=== PATIENT | male | born 2000 | race Caucasian/White ===

== ENCOUNTER 2025-03-09 13:04 | Emergency (ER) | payer OTHER, SELFPAY ==
--- NOTE | ~2025-03-09 | XR_ITS ---
XR elbow RT min 3V 03/09/2025 14:07 INDICATION: Dog bites. PROCEDURE: 4 views right elbow COMPARISON: No prior studies for comparison. FINDINGS: Fracture, dislocation or subluxation is not identified. No joint effusion. The soft tissues appear within normal limits. No foreign bodies are identified. IMPRESSION: 1: NO ACUTE BONE OR JOINT ABNORMALITY IDENTIFIED. Reviewed, dictated and finalized at location A.
[2025-03-09 13:09] VITALS: BP 142/98; PULSE 100; RESP 17; TEMP 36.4; O2SAT 98
[2025-03-09] MEDS: KETOROLAC 10 MG TABLET PO (14:15)
[2025-03-09] MEDS: AMOXICILLIN/CLAVULANATE K 875-125 MG TAB 1 TABLET PO (14:15)
--- OUTSIDE RECORDS SUMMARY | 2025-03-09 14:21 | XMS_ITS | Referral Summary ---
Author Organization [facility] Address [address] [place] [id number] Care Team Providers Care Outreach Consultant Name Role Phone Rex Mora MD Primary Care Provid er Allergies No known active allergies Medications No known medications Active Problems Problem Noted Date Diagnosed Date Volar plate injury of finger 09/07/2015 Immunizations Immunization Administration Dates Next Due Adenovirus 11/11/2018 Anthrax 05/09/2021,04/27/2020,03/10/2020 DTaP 10/11/2004, 1,02/19/2000,12/20,1999 H1N1 Nasal 09/07/2009 Hep A / Hep B 07/30/2019,12/21/2018,11/11/2018 Hep A, Ped Unspecified 06/01/2005 Hep A, Pediatric 07/03/2004 Hep B, Adolescent or Pediatric 4,08/29/2000,05/22/2000,02/18 Hib (HbOC) 11/14/2000, 0,1999,10/22 IPV 12/14/2018, 4,08/29/2000,12/20,1999 Influenza LAIV (Nasal) 09/23/2007 Influenza, Quadrivalent, Corry l Culture-based MDCK, Antibiotic Free, Intramuscular 08/17/2019 Influenza, Quadrivalent, Spl it, Preservative Free, Intramuscular 08/27/2022,08/30/2021,08/30/2020,11/11,11/01/2015 Influenza, Split 11/11/2006 Influenza, Trivalent, Cell Culture-based MDCK, Preservative Free, Antibiotic Free, Intramuscular 09/06/2017 Influenza, Trivalent, IM (MDV) 09/21/2014 Influenza, Unspecified 10/09/2023(Deferr ed: Patient Refused),08/26/2018,10/02/2016 Influenza, Whole 09/19/2003 [place] Encephalitis IM 05/09/2021 MMR 07/03/2004,11/14/2000 Meningococcal MCV4P (Menactra) 11/11/2018,2016 PPD TEST 11/11/2018 Pneumococcal Conjugate 7-Valent 11/14/2000,08/29 Pneumococcal Polysaccharide PPV23 11/11/2018 Tdap 11/11/2018 Typhoid Inactivated 03/10/2020,07/30/2019 Varicella 08/29/2000 Social History Tobacco Use Types Packs/Day Years Used Date Smoking Tobacco: Former Cigarettes AUDIT-C Answer Date Recorded Q1: How often do you have a drink containing alc ohol? Monthly or less 08/28/2024 Q2: How many drinks containi ng alcohol do you have on a typical day when you are drinking? 1 or 2 08/28/2024 Q3: How often do you have si x or more drinks on one occasion? 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 Gender Identity Not on file Sexual Orientation Not on file Last Filed Vital Signs Vital Sign Reading Time Taken Comments Blood Pressure 120/72 08/28/2024 9:04 AM CDT Pulse 70 08/28/2024 9:04 AM CDT Temperature 36.3 C (97.4 F) 08/28/2024 9:04 AM CDT Respiratory Rate 16 05/10/2024 2:16 PM CDT Oxygen Saturation 98% 08/28/2024 9:04 AM CDT Inhaled Oxygen Concentration - - Weight 71.2 kg (157 lb) 08/28/2024 9:04 AM CDT Height 170.2 cm (5' 7 ) 08/28/2024 9:04 AM CDT Body Mass Index 24.59 08/28/2024 9:04 AM CDT Plan of Treatment Not on file Insurance [employer] OPEN ACCESS Care Teams Outreach Consultant Relationship Specialty Start Date End Date Rex Mora MD [address] [place] [address] PCP - General Family Medicine 04/26/24
--- OUTSIDE RECORDS SUMMARY | 2025-03-09 14:21 | XMS_ITS | Clinical Summary ---
Author Organization [facility] Address [address] [place] [phone] Care Team Providers Care Asbestos Shingle Roofer Name Role Phone Rex Mora MD Primary [...] 10/09/2023(Deferr ed: Patient Refused),08/26/2018,10/02/2016 Influenza, Whole 09/19/2003 Yi Encephalitis IM 05/09/2021 MMR 07/03/2004,11/14/2000 Meningococcal MCV4P (Menactra) 11/11/2018,2016 PPD TEST 11/11/2018 Pneumococcal Conjugate 7-Valent 11/14/2000,08/29 Pneumococcal Polysaccharide PPV23 11/11/2018 Tdap 11/11/2018 Typhoid Inactivated 03/10/2020,07/30/2019 Varicella 08/29/2000 Medical History Medical History Date Comments Back pain Family History Medical History Relation Name Comments Hyperlipidemia Father Other Maternal Grandfather Hypertension Maternal Grandmother Breast cancer Mother Thyroid disease Mother Hypertension Paternal Grandmother Relation Name Status Comments Father Maternal Grandfather Maternal Grandmother Mother Paternal Grandmother Social History Tobacco Use Types Packs/Day Years [...] on file 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 [employer] Gender Identity Not on file Sexual Orientation Not on file Obstetrics History Last Filed Vital Signs Vital Sign Reading [...] 08/28/2024 9:04 AM CDT Plan of Treatment Health Maintenance Due Date Last Done Comments Hepatitis C Screening 1999 Varicella Vaccines (2 of 2 - 2-dose childhood series) 10/21/2007 08/29/2000 HPV Vaccines (1 - Male 3-dos e series) 2014 Covid-19 Vaccine (3 - 2023-2 5 season) 2024 12/25/2020, 12/01/2020 Influenza Vaccine (#1) 2024 , 08/30/2021, 08/30/2020, Additional history exists Depression Screening 05/10/2025 05/10/2024, 05/10/20 24 Regular Well Visit/Exam 18-64 05/10/2025 05/10/2024 DTaP/Tdap/Td Vaccine (7 - Td or Tdap) 11/11/2028 11/11/2018, 10/11/2004, 11/14/2000, Additional history exists Pneumococcal vaccine <65 Completed 019, 11/14/2000, 08/29/2000 Hepatitis B Screening Completed 07/30/2019 , 12/21/2018, 11/11/2018, Additional history exists Insurance [employer] OPEN ACCESS Care Teams Asbestos Shingle Roofer Relationship Specialty Start Date End Date Rex Mora MD [address] [place] [address] PCP - General Family Medicine 04/26/24
--- NOTE | 2025-03-09 14:27 | ED.ANIMALBIT ---
HPI - Animal Bite General Chief Complaint: Animal Bite Stated Complaint: Dog bite Time Seen by Provider: 03/09/25 13:43 History of Present Illness HPI narrative: 24-year-old male presenting to the emergency department after a dog bite to his right upper extremity just prior to arrival. 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 There were several bite pinedo to his right upper extremity. Patient presents to the emergency department. No active bleeding noted. His tetanus is updated. No history of antibiotic allergies. He was otherwise in his normal state of health. States that he tried to get the dog away and got several bites. The animal is domesticated and fully vaccinated for rabies with no other concerns at this time. Patient presently is not worried about rabies. Related Data Allergies Allergy/AdvReac Type Severity Reaction Status Date / Time No Known Allergies Allergy Verified 03/09/25 13:55 Review of Systems Review of Systems: As reviewed above in HPI Exam Narrative: GENERAL: [Well-appearing, well-nourished, and in no acute distress.] HEAD: [Normocephalic, atraumatic.] EYES: [PERRLA and EOMI.] ENT: Nares clear, no rhinorrhea or epistaxis. Mucous membranes moist. NECK: Supple. CHEST: [Clear to auscultation. No respiratory distress.] HEART: [Regular rate and rhythm]. No murmur heard. [Normal peripheral pulses.] ABDOMEN: [Soft, nondistended], [nontender], [No rigidity or guarding] EXTREMITIES: Normal range of motion. [No edema.] Full flexion and extension at the elbow and shoulder as well as good production pattern maker strength with good opposition of each digit. There are bite pinedo to the right upper extremity including dorsal lateral aspect of the right elbow and inter medial aspect of the left elbow distal humerus region. Three total lesions ranging from 0.5 cm to 1.5 cm without any significant dehiscence or bleeding. SKIN: Warm, dry, no rash. NEURO: [No focal deficits]. Alert and oriented [x3.] PSYCH: [Normal mood and affect.] Course Vital Signs Vital signs: Vital Signs Temperature 36.4 C 03/09/25 13:09 Pulse Rate 100 03/09/25 13:09 Respiratory Rate 17 03/09/25 13:09 Blood Pressure 142/98 H 03/09/25 13:09 Pulse Oximetry 98 03/09/25 13:09 Oxygen Delivery Room Air 03/09/25 13:09 Temperature 36.4 C 03/09/25 13:09 Pulse Rate 100 03/09/25 13:09 Respiratory Rate 17 03/09/25 13:09 Blood Pressure 142/98 H 03/09/25 13:09 Pulse Oximetry 98 03/09/25 13:09 Oxygen Delivery Room Air 03/09/25 13:09 MDM - Animal Bite MDM Narrative Medical decision making narrative: Twenty 24-year-old male presenting to the emergency department after being bit by household to domesticated dog. There are bite pinedo to the right upper extremity including dorsal lateral aspect of the right elbow and inter medial aspect of the left elbow distal humerus region. Three total lesions ranging from 0.5 cm to 1.5 cm without any significant dehiscence or bleeding. No signs of any retained foreign body or deep involvement. No active bleeding. Vital signs are normal, but distal pulses in neuro vasculature is intact. X-rays were obtained to rule out any kind of foreign body or joint involvement. Patient was given Toradol for analgesia and started on Augmentin. His tetanus is already updated and does not need rabies vaccination or empiric treatment at this time after discussion with him and the police officers at bedside. The dog is rabies vaccinated and patient is ultimately exceedingly low risk and after our discussion at bedside he was agreeable not to pursue any rabies series. X-ray shows no acute bone or joint abnormalities and no foreign bodies. He was started on Augmentin here and sent home with a prescription. Pain control medications prescribed and he will follow-up with regular doctor. Wound care instructions provided he was safely discharged at this time. Medical Records Attestation: I reviewed the patient's medical records. Imaging Data Attestation: I personally reviewed and interpreted this imaging study as follows: My impression: Impressions Elbow X-Ray 03/09/25 14:09 IMPRESSION: 1: NO ACUTE BONE OR JOINT ABNORMALITY IDENTIFIED. Discharge Plan Discharge Clinical Impression: Dog bite Patient Disposition: Home Condition: Stable Instructions: Antibiotic Form, Animal Bite (ED) Additional Instructions: your x-rays do not show any joint or bony involvement, no retained foreign body or teeth. we will send you home with 7 days of antibiotics and pain control medications. Keep the area and right upper extremity elevated above the level of the heart, apply ice to the area where it hurts up to 20 minutes that time. Do not rapid wounds tightly and keep loose bandaging applied for any drainage. if you start developing significant bleeding, purulent drainage, signs of infection or any other concerns please return to the emergency department otherwise follow-up with regular doctor. Patient Language: Upper Sorbian Prescriptions: New ibuprofen 800 mg tablet 800 mg PO TID PRN (Reason: pain) Qty: 30 0RF acetaminophen [Tylenol Extra Strength] 500 mg tablet 1,000 mg PO TID PRN (Reason: pain) Qty: 30 0RF amoxicillin-pot clavulanate 875-125 mg tablet 1 tablet PO Q12H 7 Days Qty: 14 0RF Follow-up/Referrals: UNKNOWN,DOCTOR [Primary Care Provider] - Time of Disposition: 14:34
== END 2025-03-09 14:48 | disposition home or self-care (01) ==
PROVIDERS: Emergency Provider Student in an Organized Health Care Education/Training Program
DX: S51.052A Open bite, left elbow, initial encounter (principal); S51.051A Open bite, right elbow, initial encounter; W54.0XXA Bitten by dog, initial encounter
CPT/HCPCS: 73080; 99283; A9270